=== PATIENT | male | born 1995 | race Caucasian/White ===

== ENCOUNTER 2018-11-27 22:30 | Emergency (ER) | payer SELFPAY ==
[~2018-11-27] VITALS: Ht 177.8 cm; Wt 64.5 kg
[2018-11-27 22:45] VITALS: BP 121/60; PULSE 62; RESP 19; Ht 177.8 cm; Wt 64.5 kg
[2018-11-28] MEDS ORDERED: NAPR-985 PO (14:32)
[2018-11-28] MEDS ORDERED: HYDR-4011 PO (14:33)
== END 2018-11-28 06:43 | disposition left against medical advice (07) ==
LOC: FTE 22:30
DX: Z53.21 Procedure and treatment not carried out due to patient leaving prior to being seen by health care provider (principal)

== ENCOUNTER 2018-11-28 12:52 | Emergency (ER) | payer SELFPAY ==
[~2018-11-28] VITALS: Ht 175.3 cm; Wt 65.0 kg
[2018-11-28 13:01] VITALS: BP 116/59; PULSE 52; RESP 17; Ht 175.3 cm; Wt 65.0 kg
[2018-11-28] MEDS ORDERED: ONDANSETRON (ODT) 4 MG TAB ODT STA (13:59)
[2018-11-28] MEDS ORDERED: HYDROCODONE/APAP (5/325) TAB PO ONE (14:00)
[2018-11-28] MEDS ORDERED: NAPR-985 PO (14:32)
[2018-11-28] MEDS ORDERED: HYDR-4011 PO (14:33)
--- NOTE | 2018-11-28 15:30 | ERD ---
ER Documentation Chief Complaint Chief Complaint RT HAND INJURY AT WORK C/O PAIN AND SWELLING HPI 23-year-old male presenting with pain to his right hand. Patient states that he fell backwards on his right hand at work when he tripped. He is right-hand dominant. This happened about 2 hours ago. He has not taken medications for pain. Denies any numbness or tingling. Has pain with movements of the fifth digit. NKDA. Surgical history denies. Social history smokes 1 cigarette a day. ROS All systems reviewed and are negative except as per history of present illness. Medications Home Meds Active Scripts Hydrocodone/Acetaminophen ([place] 5-325 Tablet) 1 Each Tablet, 1 TAB PO Q6H PRN for PAIN, #7 TAB Prov:KEYUR ARREGUIN PA-C 11/28/18 Naproxen* (Naprosyn*) 500 Mg Tablet, 500 MG PO BID PRN for PAIN AND/OR INFLAMMATION, #30 TAB Prov:KEYUR ARREGUIN PA-C 11/28/18 Allergies Allergies: Coded Allergies: No Known Allergy (Unverified , 11/27/18) PMhx/Soc Medical and Surgical Hx: pt denies Medical Hx, pt denies Surgical Hx Hx Alcohol Use: No Hx Substance Use: No Hx Tobacco Use: Yes Smoking Status: Current every day smoker FmHx Family History: No diabetes, No coronary disease, No other Physical Exam Vitals Vital Signs Date Temp Pulse Resp B/P (MAP) Pulse Ox O2 O2 Flow FiO2 Time Delivery Rate 11/28/18 97.9 52 17 116/59 99 13:01 (78) Physical Exam GENERAL: The patient is well-appearing, well-nourished, in no acute distress CHEST: Clear to auscultation bilaterally. There are no rales, wheezes or rhonchi. HEART: Regular rate and rhythm. No murmurs, clicks, rubs or gallops. EXTREMITIES: Tender to palpation to the base of the right fifth MP CP with deformity noted. Range of motion limited secondary to pain. Normal able to isolate the DIP and PIP joint. Cap refill less than 2 seconds. NEUROLOGIC: Alert and oriented. Cranial nerves II through XII intact. Motor st rength in all 4 extremities with 5 out of 5 strength. Sensation grossly intact. Normal speech and gait. SKIN: There is no apparent rash or petechiae. The skin is warm and dry. Results 24 hrs Current Medications Medications Dose Sig/Aayush Start Time Status Last (Trade) Ordered Route PRN Stop Time Admin Dose Reason Admin 1 tab ONCE ONCE 11/28/18 DC 11/28/18 Acetaminophen PO 14:00 14:07 / 11/28/18 14:01 Hydrocodone Bitart ([place] (5/325)) Ondansetron 4 mg ONCE STAT 11/28/18 DC 11/28/18 HCl (Zofran ODT 13:59 14:07 Odt) 11/28/18 14:00 Procedures/MDM DIAGNOSTIC IMAGING REPORT Patient: PANCHO SANTOS : 1995 Age: 23 Sex: M MR #: [id number] DOS: 11/28/18 1359 Ordering MD: MOOK ARREGUIN PA-C Location: [facility] Room/Bed: PROCEDURE: XR Hand. CLINICAL INDICATION: hand pain TECHNIQUE: AP oblique and lateral views of the right hand were obtained. COMPARISON: No prior studies are available for comparison. FINDINGS: Noted is swelling overlying the fifth metacarpal. There is a comminuted fracture of the fifth metacarpal neck with volar angulation of the distal fracture fragment. No other osseous, soft tissue or joint space abnormalities seen. IMPRESSION: Boxer's fracture right fifth metacarpal. DIAGNOSTIC IMAGING REPORT Patient: PANCHO SANTOS : 1995 Age: 23 Sex: M MR #: [id number] DOS: 11/28/18 1359 Ordering MD: MOOK ARREGUIN PA-C Location: [facility] Room/Bed: PROCEDURE: Right wrist x-ray CLINICAL INDICATION: Trauma TECHNIQUE: AP, lateral and oblique views of the wrist were obtained. COMPARISON: None FINDINGS: There is normal mineralization. No acute fracture or dislocation is seen. There are no significant degenerative changes. There is no significant soft tissue swelling. IMPRESSION: Normal x-ray of the right wrist. ER Course: Ulnar gutter applied to right hand. Neuro intact pre-and post splint application. [place] given the ED. Zofran given ED. MDM: 23-year-old male presenting with findings consistent with boxer's fracture. Patient has fracture seen on x-ray. Patient is splinted and told to follow-up with orthopedist. I have low suspicion for tendon or ligament injury. I have low suspicion for neuro deficit. Patient is discharged with strict ER precautions and told to follow-up with primary care within 1-2 days for close evaluation. All questions answered at discharge Departure Diagnosis: Primary Impression: Boxers fracture Condition: Stable Patient Instructions: Fracture, Boxer's Referrals: [facility] YOU HAVE RECEIVED A MEDICAL SCREENING EXAM AND THE RESULTS INDICATE THAT YOU DO NOT HAVE A CONDITION THAT REQUIRES URGENT TREATMENT IN THE EMERGENCY DEPARTMENT. FURTHER EVALUATION AND TREATMENT OF YOUR CONDITION CAN WAIT UNTIL YOU ARE SEEN IN YOUR DOCTORS OFFICE WITHIN THE NEXT 1-2 DAYS. IT IS YOUR RESPONSIBILITY TO MAKE AN APPOINTMENT FOR FOLOW-UP CARE. IF YOU HAVE A PRIMARY DOCTOR --you should call your primary doctor and schedule an appointment IF YOU DO NOT HAVE A PRIMARY DOCTOR YOU CAN CALL OUR PHYSICIAN REFERRAL HOTLINE AT IF YOU CAN NOT AFFORD TO SEE A PHYSICIAN YOU CAN CHOSE FROM THE FOLLOWING [facility] [address] [facility] [address] [facility] [facility] [address] [facility] [facility] [address] [facility]. [facility] [address] [facility]. [facility]. [address] Additional Instructions: FOLLOW UP WITH YOUR PRIMARY CARE PHYSICIAN TOMORROW.Return to this facility if you are not improving as expected. KEYUR ARREGUIN PA-C Nov 28, 2018 15:30
== END 2018-11-28 15:00 | disposition home or self-care (01) ==
LOC: FTE 12:52
DX: S62.336A Displaced fracture of neck of fifth metacarpal bone, right hand, initial encounter for closed fracture (principal); F17.210 Nicotine dependence, cigarettes, uncomplicated; W01.0XXA Fall on same level from slipping, tripping and stumbling without subsequent striking against object, initial encounter; Y92.89 Other specified places as the place of occurrence of the external cause